=== PATIENT | male | born 1995 | race Two or more races ===

== ENCOUNTER 2022-03-06 13:56 | Inpatient (IN) | payer OTHER ==
[~2022-03-06] VITALS: Ht 188 cm; Wt 91.6 kg
[2022-03-06 16:07] LABS: Basophils # (auto) 0 10 ^3/uL (0-0.2); Basophils % (auto) 0.8 % (0.0-2.0); Eosinophils # (auto) 0.2 10 ^3/uL (0-0.8); Eosinophils % (auto) 2.5 % (0.0-7.0); Hematocrit 44.7 % (41.0-53.0); Lymphocytes # (auto) 1.9 10 ^3/uL (0.4-5.4); Lymphocytes % (auto) 31.7 % (10.0-50.0); Mean Corpuscular Hemoglobin 30.9 pg (28.0-32.0); Mean Corpuscular Hgb Conc. 33.4 g/dL (32.0-36.0); Mean Corpuscular Volume 92.4 fL (80.0-100.0); Monocytes # (auto) 0.5 10 ^3/uL (0-1.3); Monocytes % (auto) 8.3 % (0.0-12.0); Neutrophils # (auto) 3.4 10 ^3/uL (1.6-8.6); Neutrophils % (auto) 56.7 % (37.0-80.0); Nucleated Red Blood Cells % 0.2 %; Red Blood Cells 4.84 10^6/uL (4.5-5.90); Red Cell Distribution Width 12.8 % (11.8-14.3); White Blood Cell 6.1 10^3/uL (4.4-10.8)
[2022-03-06 16:25] LABS: BUN/Creatinine Ratio 16.7; Calcium 9.6 mg/dL (8.5-10.1)
[2022-03-06] MEDS ORDERED: ACETAMINOPHEN 500 MG TAB PO PRN (19:00)
[2022-03-06] MEDS ORDERED: MORPHINE SULFATE INJ 2 MG/ml SYRG IV PRN (19:00)
[2022-03-06] MEDS ORDERED: HYDROcodone-ACET 5/325MG TAB PO PRN (19:00)
[2022-03-06] MEDS ORDERED: ONDANSETRON HCL 4 MG/2 ML VIAL IV PRN (19:00)
[2022-03-07 16:45] VITALS: BP 96/55
[2022-03-07 20:00] VITALS: BP 109/65
[2022-03-07 22:00] VITALS: BP 109/65
[2022-03-08 05:00] VITALS: BP 105/61
[2022-03-08 08:00] VITALS: BP 107/62
[2022-03-08 12:01] VITALS: BP 107/62
== END 2022-03-08 13:00 | disposition home or self-care (01) | DRG 201 ==
LOC: ER 13:56 → OVERFLOW 19:02 → EAST 03-07 12:28
PROVIDERS: ADMIT Nurse Practitioner Acute Care; ATTEND Nurse Practitioner Acute Care
DX: J93.11 Primary spontaneous pneumothorax (principal); M54.9 Dorsalgia, unspecified; Z72.0 Tobacco use; Z20.822 Contact with and (suspected) exposure to COVID-19
CPT/HCPCS: 36415; 71045; 71046; 71250; 80048; 84484; 85025; 87426; 93005; G0378